=== PATIENT | male | born 1985 | race Caucasian/White ===

== ENCOUNTER 2021-04-30 11:35 | Emergency (ER) | payer MEDICAID ==
[~2021-04-30] VITALS: Ht 200.7 cm; Wt 102.3 kg
[2021-04-30 11:39] VITALS: BP 135/79
== END 2021-04-30 12:36 | disposition home or self-care (01) ==
LOC: ER 11:36
DX: R09.81 Nasal congestion (principal); Z90.49 Acquired absence of other specified parts of digestive tract; Z90.89 Acquired absence of other organs; Z88.8 Allergy status to other drugs, medicaments and biological substances
CPT/HCPCS: 99281

== ENCOUNTER 2021-07-06 10:04 | Emergency (ER) | payer MEDICAID ==
[~2021-07-06] VITALS: Ht 200.7 cm; Wt 100.0 kg
[2021-07-06 11:31] VITALS: BP 114/84
== END 2021-07-06 11:32 | disposition home or self-care (01) ==
LOC: ER 10:04
DX: S60.221A Contusion of right hand, initial encounter (principal); M79.641 Pain in right hand; F12.90 Cannabis use, unspecified, uncomplicated; Z90.49 Acquired absence of other specified parts of digestive tract; Z90.89 Acquired absence of other organs; Z88.8 Allergy status to other drugs, medicaments and biological substances; X58.XXXA Exposure to other specified factors, initial encounter; Y93.89 Activity, other specified; Y92.89 Other specified places as the place of occurrence of the external cause; Y99.8 Other external cause status
CPT/HCPCS: 73130; 99283

== ENCOUNTER 2021-12-06 12:31 | Emergency (ER) | payer MEDICAID ==
[~2021-12-06] VITALS: Ht 200.7 cm; Wt 110.0 kg
[2021-12-06 13:18] VITALS: BP 147/81
== END 2021-12-06 14:49 | disposition home or self-care (01) ==
LOC: ER 12:32
DX: M75.41 Impingement syndrome of right shoulder (principal); F12.10 Cannabis abuse, uncomplicated; Z90.49 Acquired absence of other specified parts of digestive tract; Z88.8 Allergy status to other drugs, medicaments and biological substances; Z79.899 Other long term (current) drug therapy
CPT/HCPCS: 99282

== ENCOUNTER 2023-06-15 08:30 | Emergency (ER) | payer MEDICAID, OTHER ==
[~2023-06-15] VITALS: Ht 193 cm; Wt 107.2 kg
[2023-06-15 08:42] VITALS: BP 122/88; PULSE 79; RESP 16; TEMP 98; O2SAT 99
== END 2023-06-15 12:52 | disposition home or self-care (01) ==
LOC: ER 08:31
DX: S80.01XA Contusion of right knee, initial encounter (principal); F12.90 Cannabis use, unspecified, uncomplicated; Z91.041 Radiographic dye allergy status; Z88.8 Allergy status to other drugs, medicaments and biological substances; Z91.013 Allergy to seafood; Z90.49 Acquired absence of other specified parts of digestive tract; V49.9XXA Car occupant (driver) (passenger) injured in unspecified traffic accident, initial encounter; Y93.89 Activity, other specified; Y92.89 Other specified places as the place of occurrence of the external cause; Y99.8 Other external cause status
CPT/HCPCS: 73564; 99283

== ENCOUNTER 2023-10-20 10:12 | Emergency (ER) | payer MEDICAID ==
[~2023-10-20] VITALS: Ht 200.7 cm; Wt 97.0 kg
[2023-10-20 10:24] VITALS: TEMP 98.5
[2023-10-20 12:59] LABS: BASOPHILS # (AUTO) 0.1 X10'3 (0-0.2); BASOPHILS % (AUTO) 0.8 % (0-1); EOSINOPHILS # (AUTO) 0.3 X10'3 (0-0.9); EOSINOPHILS % (AUTO) 3.5 % (0-6); HEMATOCRIT 46.5 % (42.0-52.0); HEMOGLOBIN 15.5 g/dl (14.0-17.9); LYMPHOCYTES # (AUTO) 1.7 X10'3 (1.1-4.8); LYMPHOCYTES % (AUTO) 20.9 % (21-51); MEAN CORPUSCULAR HEMOGLOBIN 29.5 PG (27.0-31.0); MEAN CORPUSCULAR HGB CONC 33.3 g/dL (33.0-36.5); MEAN CORPUSCULAR VOLUME 88.4 FL (78-98); MEAN PLATELET VOLUME 7.9 FL (7.4-10.4); MONOCYTES # (AUTO) 0.8 X10'3 (0-0.9); MONOCYTES % (AUTO) 10.2 % (2-12); NEUTROPHILS # (AUTO) 5.2 X10'3 (1.8-7.7); NEUTROPHILS % (AUTO) 64.6 % (42-75); PLATELET COUNT 378 X10'3 (140-440); RED BLOOD COUNT 5.26 X10'6 (4.70-6.10); RED CELL DISTRIBUTION WIDTH 14.5 % (11.5-14.5); WHITE BLOOD COUNT 8.1 X10'3 (4.5-11.0)
[2023-10-20 13:07] LABS: ALANINE AMINOTRANSFERASE 40 U/L (12-78); ALBUMIN 4.2 G/DL (3.4-5.0); ALBUMIN/GLOBULIN RATIO 1.2 (1.1-1.5); ALKALINE PHOSPHATASE 98 IU/L (46-116); ANION GAP 11 (8-16); ASPARTATE AMINO TRANSFERASE 20 U/L (10-37); BILIRUBIN,TOTAL 0.5 MG/DL (0.1-1.0); BLOOD UREA NITROGEN 26 MG/DL (7-18); BUN/CREATININE RATIO 21.3 (10.0-20.0); CHLORIDE 103 MMOL/L (99-107); CREATININE 1.22 MG/DL (0.60-1.10); GLUCOSE 111 MG/DL (70-104); POTASSIUM 3.9 MMOL/L (3.5-5.1); SODIUM 138 MMOL/L (135-145); TOTAL CARBON DIOXIDE 24.2 MMOL/L (24-32); TOTAL PROTEIN 7.8 G/DL (6.4-8.2); eCRCL 109 ML/MIN; eGFR 66 ML/MIN
[2023-10-20] MEDS ORDERED: ONDA-245 PO (13:16)
[2023-10-20] MEDS ORDERED: ALBU18HF2 INH (13:16)
[2023-10-20] MEDS ORDERED: NAPR-56 PO (13:16)
[2023-10-20] MEDS ORDERED: METH4TAB81 PO (13:16)
[2023-10-20 14:00] VITALS: BP 110/73; PULSE 97; RESP 14; O2SAT 97
== END 2023-10-20 14:03 | disposition home or self-care (01) ==
LOC: ER 10:13
DX: J20.9 Acute bronchitis, unspecified (principal); F12.90 Cannabis use, unspecified, uncomplicated; Z88.8 Allergy status to other drugs, medicaments and biological substances; Z91.018 Allergy to other foods; Z79.52 Long term (current) use of systemic steroids; Z79.1 Long term (current) use of non-steroidal anti-inflammatories (NSAID); Z90.49 Acquired absence of other specified parts of digestive tract; Z98.890 Other specified postprocedural states; Z20.822 Contact with and (suspected) exposure to COVID-19
CPT/HCPCS: 36415; 71046; 80053; 85025; 87811; 99284

== ENCOUNTER 2024-02-24 11:14 | Emergency (ER) | payer MEDICAID ==
[~2024-02-24] VITALS: Ht 195.6 cm; Wt 93.1 kg
[~2024-02-24 11:14] MED LIST: ALBU18HF2 INH; METH4TAB81 PO; ONDA-245 PO
[2024-02-24 11:17] VITALS: BP 134/68; PULSE 106; RESP 16; TEMP 98.3; O2SAT 96
== END 2024-02-24 12:54 | disposition left against medical advice (07) ==
LOC: ER 11:15
DX: R05.9 Cough, unspecified (principal); J00 Acute nasopharyngitis [common cold]; R09.81 Nasal congestion; Z53.21 Procedure and treatment not carried out due to patient leaving prior to being seen by health care provider